=== PATIENT | female | born 1990 | race Hispanic/Latino ===

== ENCOUNTER 2016-10-03 21:30 | Emergency (ER) | payer BC ==
[2016-10-03] MEDS ORDERED: ONDANSETRON INJ 4 MG/2 ML VIAL IV ONE (21:44)
[2016-10-03] MEDS ORDERED: SODIUM CHLORIDE 0.9% (FLUSH) 10 ML SYG IV PRN (21:44)
[2016-10-03] MEDS ORDERED: SODIUM CHLORIDE 0.9% 1000ML 1,000 ML IVS ONE (21:52)
--- NOTE | 2016-10-03 22:27 | RAD ---
EXAM: Chest,1 View CLINICAL INDICATION: 25-year-old female with chest pain. TECHNIQUE: Single view, AP portable chest was obtained. COMPARISON: None. FINDINGS: Unremarkable cardiac and mediastinal silhouette. Heart size is normal. Lungs are clear without focal opacity, pneumothorax or pleural effusions. The visualized bones are within normal limits. IMPRESSION: No acute cardiopulmonary abnormalities. Electronically signed by: Chrystal Huynh MD 10/03/2016 10:26 PM PATTERNMAKER BENCH
--- NOTE | 2016-10-04 02:53 | ED.PDOC ---
History of Present Illness - General Chief Complaint: Behavioral / Psych Stated Complaint: increased anxiety Time Seen by Provider: 10/03/16 21:44 Source: patient, RN notes reviewed, Vital Signs reviewed, family Exam Limitations: no limitations - History of Present Illness Initial Comments: Patient is a 25 y/o female who comes in complaining of chest pain and shortness of breath. She has been extremely anxious lately, and took 8 tablets of 25 mg Benadryl at about 2000. She knows she should not have taken that many, but she was very anxious. She insists that she was not trying to hurt herself. No suicidal ideations. 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 It is a sharp pain, substernal. She is slightly nauseous. No diaphoresis. Timing/Duration: 1/2 hour Severity: severe Improving Factors: nothing Worsening Factors: nothing Associated Symptoms: chest pain, nausea/vomiting, shortness of breath, other - anxiety Allergies/Adverse Reactions: Allergies NO KNOWN ALLERGY Allergy (Verified 10/03/16 21:52) Review of Systems - Review of Systems Constitutional: States: no symptoms reported EENTM: States: no symptoms reported Respiratory: States: short of breath Cardiology: States: chest pain Gastrointestinal/Abdominal: States: nausea Genitourinary: States: no symptoms reported Musculoskeletal: States: no symptoms reported Skin: States: no symptoms reported Neurological: States: anxiety, depressed, emotional problems Endocrine: States: no symptoms reported Hematologic/Lymphatic: States: no symptoms reported All other Systems: Reviewed and Negative Past Medical History (General) - Patient Medical History Hx Diabetes: No Surgical History: other - Vaccination History Hx Tetanus, Diphtheria Vaccination: No Hx Influenza Vaccination: No Hx Pneumococcal Vaccination: No Immunizations Up to Date: No - Social History Hx Tobacco Use: Yes Hx Alcohol Use: No Hx Substance Use: No Hx Substance Use Treatment: No Hx Depression: Yes - Female History Patient is a Female of Child Bearing Age (10 -59 yrs old): Yes Patient : No Family Medical History - Family History Mother Family History: Unknown Living Status: Unknown Physical Exam - Physical Exam General Appearance: Alert, Anxious, Obvious distress Eye Exam: bilateral normal Ears, Nose, Throat: hearing grossly normal, normal ENT inspection Neck: full range of motion, supple Respiratory: lungs clear, normal breath sounds, no respiratory distress, other - tachypnic Cardiovascular/Chest: normal peripheral pulses, regular rate, rhythm, no edema, no gallop, no murmur Gastrointestinal/Abdominal: normal bowel sounds, non tender, soft, no organomegaly Back Exam: normal inspection Extremity: normal range of motion, non-tender, normal inspection, no pedal edema , no calf tenderness Neurologic: alert, oriented x 3, other Skin Exam: normal color, warm/dry Progress - Progress Progress: 10/04/16 02:58 Patient calmed down after Ativan 1 mg. Her chest pain stopped. Nursing called Poison Control who recommended tox screen with repeat in four hours. Monitor for seizure activity. Patient was observed in ED for 4+ hours. Much of the time was spent sleeping. Because Patient specified that she has no suicidal ideation and took too much Benadryl because of anxiety, I will discharge home with her to follow up with Mental Health in AM. 10/04/16 03:45 - Results/Orders Results/Orders: 10/03/16 10/03/16 10/03/16 21:53 22:38 22:50 Temperature 97.2 F L Pulse Rate [ 104 H 90 Left] Respiratory 24 24 Rate Blood Pressure 127/73 100/53 [Left Arm] O2 Sat by Pulse 100 97 99 Oximetry 10/03/16 10/04/16 23:00 00:14 Temperature Pulse Rate [ 80 76 Left] Respiratory 18 18 Rate Blood Pressure 95/65 96/54 [Left Arm] O2 Sat by Pulse 97 97 Oximetry 10/03/16 21:44 Sodium Chloride 0.9% (Flush) [Saline Flush Syringe] 10 ml IV PRN PRN 10/03/16 21:45 IV Care:Saline Lock per Protoc QSHIFT Telemetry .ONCE EKG Stat Pulse Ox Stat Pulse Oximetry Assessment DAILY Laboratory Results WBC 6.9 K/mm3 (4.8-10.8) 10/03/16 21:57 RBC 4.67 M/mm3 (4.20-5.40) 10/03/16 21:57 Hgb 13.8 gm/dL (12.0-16.0) 10/03/16 21:57 Hct 40.6 % (36.0-47.0) 10/03/16 21:57 MCV 86.9 fl (81.0-99.0) 10/03/16 21:57 MCH 29.5 pg (27.0-31.0) 10/03/16 21:57 MCHC 34.0 g/dL (33.0-37.0) 10/03/16 21:57 RDW 13.7 % (11.5-14.5) 10/03/16 21:57 Plt Count 193 K/mm3 (130-400) 10/03/16 21:57 MPV 9.2 fl (7.40-10.4) 10/03/16 21:57 Absolute Neuts (auto) 3.20 K/uL (1.8-6.8) 10/03/16 21:57 Absolute Lymphs (auto) 2.60 K/uL (1.0-3.4) 10/03/16 21:57 Absolute Monos (auto) 0.50 K/uL (0.2-0.8) 10/03/16 21:57 Absolute Eos (auto) 0.60 K/uL (0.0-0.4) H 10/03/16 21:57 Absolute Basos (auto) 0.00 K/uL (0.0-0.1) 10/03/16 21:57 Neutrophils % 46.0 % (42.0-78.0) 10/03/16 21:57 Lymphocytes % 37.5 % (20.0-50.0) 10/03/16 21:57 Monocytes % 7.8 % (2.0-9.0) 10/03/16 21:57 Eosinophils % 8.1 % (1.0-5.0) H 10/03/16 21:57 Basophils % 0.6 % (0.0-2.0) 10/03/16 21:57 PT 14.4 SECONDS (9.4-12.5) H 10/03/16 21:57 INR 1.280 10/03/16 21:57 PTT (SP) 33.2 SECONDS (25.1-36.5) 10/03/16 21:57 D-Dimer, Quantitative < 200 ng/mL (0-230) 10/03/16 21:57 Sodium 140 mmol/L (135-145) 10/03/16 21:57 Potassium 4.0 mmol/L (3.6-5.0) 10/03/16 21:57 Chloride 105 mmol/L (101-111) 10/03/16 21:57 Carbon Dioxide 26 mmol/L (21-31) 10/03/16 21:57 Anion Gap 13.0 (12-18) 10/03/16 21:57 BUN 17 mg/dL (7-18) 10/03/16 21:57 Creatinine 0.92 mg/dL (0.6-1.3) 10/03/16 21:57 BUN/Creatinine Ratio 18.5 (10-20) 10/03/16 21:57 Random Glucose 113 mg/dL (70-105) H 10/03/16 21:57 Serum Osmolality 281.7 mOsm/L (275-295) 10/03/16 21:57 Calcium 9.3 mg/dL (8.4-10.2) 10/03/16 21:57 Magnesium 1.9 mg/dL (1.8-2.5) 10/03/16 21:57 Total Bilirubin 0.8 mg/dL (0.2-1.0) 10/03/16 21:57 Direct Bilirubin 0.1 mg/dL (0-0.2) 10/03/16 21:57 Indirect Bilirubin 0.7 mg/dL (0.2-0.8) 10/03/16 21:57 AST 26 IU/L (10-42) 10/03/16 21:57 ALT 15 IU/L (10-60) 10/03/16 21:57 Alkaline Phosphatase 57 IU/L (42-121) 10/03/16 21:57 Creatine Kinase 179 IU/L (26-140) H 10/04/16 02:33 CK-MB (CK-2) 2.3 ng/mL (0.0-4.4) 10/04/16 02:33 CK-MB (CK-2) % Not Reportable 10/04/16 02:33 Troponin I < 0.02 ng/mL (0.01-0.05) 10/04/16 02:33 B-Natriuretic Peptide < 5.0 pg/ml (0-100) 10/03/16 21:57 Serum Total Protein 7.2 gm/dL (6.4-8.2) 10/03/16 21:57 Albumin 4.4 g/dl (3.2-5.5) 10/03/16 21:57 Urine Color Yellow (Yellow) 10/03/16 22:37 Urine Appearance Clear (Clear) 10/03/16 22:37 Urine pH 6.0 (4.5-7.8) 10/03/16 22:37 Ur Specific [place] 1.010 (1.005-1.030) 10/03/16 22:37 Urine Protein Negative mg/dL 10/03/16 22:37 Urine Glucose (UA) Negative mg/dL (Negative) 10/03/16 22:37 Urine Ketones Negative mg/dL (NEGATIVE) 10/03/16 22:37 Urine Blood Small (Negative) H 10/03/16 22:37 Urine Nitrite Negative 10/03/16 22:37 Urine Bilirubin Negative (NEGATIVE) 10/03/16 22:37 Urine Urobilinogen 0.2 mg/dL (0.2-1.0) 10/03/16 22:37 Ur Leukocyte Esterase Negative (Negative) 10/03/16 22:37 Urine RBC 1-3 /hpf 10/03/16 22:37 Urine WBC 3-5 /hpf H 10/03/16 22:37 Ur Epithelial Cells 5-10 /hpf 10/03/16 22:37 Urine Bacteria 2+ H 10/03/16 22:37 Salicylates < 4.0 mg/dL (0-29.9) 10/04/16 02:32 Urine Opiates Screen Negative ng/mL (2000) 10/03/16 21:52 Acetaminophen < 10.0 ug/mL (10.0-30.0) L 10/04/16 02:32 Urine Barbiturates Negative ng/mL (200) 10/03/16 21:52 Ur Phencyclidine Scrn Negative ng/mL (25) 10/03/16 21:52 U Amphetamin/Meth Scrn Negative ng/mL (1000) 10/03/16 21:52 U Benzodiazepines Scrn Negative ng/mL (200) 10/03/16 21:52 U Cocaine Metab Screen Negative ng/mL (300) 10/03/16 21:52 U Cannabinoids Screen Negative ng/mL (50) 10/03/16 21:52 Departure - Departure Clinical Impression: Anxiety disorder Qualifiers: Anxiety disorder type: unspecified anxiety disorder Qualifier Code: (F41.9) Anxiety disorder, unspecified Intentional diphenhydramine overdose Qualifiers: Encounter type: initial encounter Qualifier Code: (T45.0X2A) Poisoning by antiallergic and antiemetic drugs, intentional self-harm, initial encounter Time of Disposition: 03:43 Disposition: Discharge to Home or Self Care Condition: Fair Departure Forms: ED Discharge - Pt. Copy, Patient Portal Self Enrollment Instructions: Anxiety Disorders, DI for Anxiety -- Adult Diet: resume usual diet Additional Instructions: Follow up with Mental Health in AM.
[2016-10-04 03:27] VITALS: O2SAT 98
[2016-10-04 04:26] VITALS: BP 90/50; TEMP 97.4
--- NOTE | 2016-10-27 23:51 | RAD ---
EXAM: Chest,1 View CLINICAL INDICATION: 25-year-old female with chest pain. TECHNIQUE: Single view, AP portable chest was obtained. COMPARISON: None. FINDINGS: Unremarkable cardiac and mediastinal silhouette. Heart size is normal. Lungs are clear without focal opacity, pneumothorax or pleural effusions. The visualized bones are within normal limits. IMPRESSION: No acute cardiopulmonary abnormalities. Electronically signed by: Chrystal Huynh MD 10/03/2016 10:26 PM MOLD MAKER APPRENTICE
--- NOTE | 2016-10-28 05:26 | RAD ---
EXAM: Chest,1 View CLINICAL INDICATION: 25-year-old female with chest pain. TECHNIQUE: Single view, AP portable chest was obtained. COMPARISON: None. FINDINGS: Unremarkable cardiac and mediastinal silhouette. Heart size is normal. Lungs are clear without focal opacity, pneumothorax or pleural effusions. The visualized bones are within normal limits. IMPRESSION: No acute cardiopulmonary abnormalities. Electronically signed by: Chrystal Huynh MD 10/03/2016 10:26 PM LIGHTING FIXTURES DECORATOR
== END 2016-10-04 04:15 | disposition home or self-care (01) ==
LOC: ER 21:30
DX: F41.9 Anxiety disorder, unspecified (principal); T45.0X1A Poisoning by antiallergic and antiemetic drugs, accidental (unintentional), initial encounter; Z87.891 Personal history of nicotine dependence
CPT/HCPCS: 36415; 71010; 80048; 80076; 80329; 81001; 82550; 82553; 83880; 84484; 85025; 85379; 85610; 85730; 93005; 94760; G0479; J2060; J2405; J7030